=== PATIENT | male | born 1955 | race Caucasian/White ===

== ENCOUNTER 2017-06-20 17:06 | Inpatient (IN) | payer MEDICARE ==
[2017-06-20 17:35] LABS: #Eosinphils 0.3 thou/uL (0.0-0.7); #Lymphocytes 1.2 thou/uL (1.20-3.40); #Monocytes 0.7 thou/uL (0.11-0.59); #Neutrophils 13.7 thou/uL (1.40-6.50); %Basophils 0.3 % (0.0-1.0); %Eosinophils 1.8 % (0.0-10.0); %Lymphocytes 7.8 % (21.0-51.0); %Monocytes 4.2 % (0.0-10.0); Hemoglobin 15.9 g/dL (14.0-18.0); Mean Corpuscular HGB CONC 32.6 g/dL (32.0-36.0); Mean Corpuscular Hemoglobin 31.7 pg (27.0-31.0); Mean Corpuscular Volume 97.5 fl (80.0-94.0); Platelet Count 329 thou/uL (130-400); RBC Distribution Width 11.5 % (11.5-14.5); Red Blood Cell (RBC) Count 5.02 mill/uL (4.70-6.10); White Blood Cell (WBC) Count 15.9 thou/uL (4.8-10.8)
[2017-06-20 17:54] LABS: PTT 27.2 SEC (22.9-36.1); Prothrombin Time 13.5 SEC (12.0-14.7)
[2017-06-20 17:55] LABS: D-Dimer Test 0.43 *mcg/mL (0.27-0.43)
[2017-06-20 17:56] LABS: Acetaminophen Less than 6.0 mcg/mL (10.0-30.0); Alcohol Less than 10 mg/dL (Less than 10); Salicylate Less than 8.0 mg/dL (15.0-30.0)
[2017-06-20 17:59] LABS: ALT (SGPT) 12 U/L (8-55); AST (SGOT) 11 U/L (5-34); Albumin 4.3 g/dL (3.4-4.8); Alkaline Phosphatase 87 U/L (40-150); Anion Gap 15 mmol/L (10-20); BUN (Urea Nitrogen) 19 mg/dL (8.4-25.7); Bilirubin, Total 1.2 mg/dL (0.2-1.2); CK (CPK) 32 U/L (30-200); CKMB 1.1 ng/mL (0-6.6); Calc. Creatinine Clearance 0 mL/min (70-130); Calcium 9.4 mg/dL (7.8-10.44); Carbon Dioxide 29 mmol/L (23-31); Chloride 96 mmol/L (98-107); Estimated GFR-MDRD 66; Globulin 3.6 g/dL (2.4-3.5); Glucose 343 mg/dL (80-115); Lipase 11 U/L (8-78); Potassium 5.1 mmol/L (3.5-5.1); Protein, Total 7.9 g/dL (5.8-8.1); Sodium 135 mmol/L (136-145); Troponin I 0.014 ng/mL (< 0.028)
--- NOTE | 2017-06-20 18:01 | RAD ---
PORTABLE CHEST: 06/20/17 HISTORY: Shortness of breath. Elevated blood pressure. Heart size is enlarged. Internal defibrillator device is present. The lungs are clear of infiltrates. IMPRESSION: Cardiomegaly. POS: [facility]
[2017-06-20 18:05] LABS: Bilirubin Negative (Negative); Blood, Urine Negative (Negative); Clarity CLOUDY (Clear); Glucose, Urine (Dipstick) 500 mg/dL (Negative); Leukocyte Negative (Negative); Nitrite Negative (Negative); Protein, Urine (Dipstick) Negative (Neg-Trace); Specific Gravity, Urine 1.019 (1.002-1.036); pH, Urine 7.5 (5.0-9.0)
--- NOTE | 2017-06-20 18:13 | CT ---
CT OF BRAIN PERFORMED WITHOUT CONTRAST ENHANCEMENT: 06/20/17 HISTORY: Altered mental status. There is some generalized ventricular and sulcal prominence. No signs of intracerebral hemorrhage or extra-axial fluid collections. The mastoid air cells are clear. There is mucosal change in the left maxillary sinus. IMPRESSION: No acute intracranial abnormality. POS: [facility]
[2017-06-20 18:54] LABS: Amphetamine Not Detected (NotDetected); Barbiturates Screen Not Detected (NotDetected); Benzodiazepine Screen Detected (NotDetected); Cocaine Metabolite Screen Not Detected (NotDetected); Medtox Control Line Valid? VALID (VALID); Medtox Reader # READER 4; Methadone Not Detected (NotDetected); Methamphetamine Not Detected (NotDetected); Opiate Screen Detected (NotDetected); Oxycodone Screen Not Detected (NotDetected); Phencyclidine (PCP) Not Detected (NotDetected); THC/Cannabinoid Screen Not Detected (NotDetected); Tricyclic Screen Not Detected (NotDetected)
[2017-06-20] MEDS ORDERED: Acetaminophen 500 MG TAB ONE (20:27)
[2017-06-20] MEDS ORDERED: Ondansetron ODT 4 MG TAB SL PRN (21:15)
[2017-06-20] MEDS ORDERED: Sodium Chloride 0.9% 1,000 ML IV SCH (21:15)
[2017-06-20] MEDS ORDERED: Ondansetron HCl/PF 4 MG/2 ML Vial IVP PRN (21:15)
[2017-06-20] MEDS ORDERED: Dextrose 5% in Water 1,000 ML IV PRN (21:34)
[2017-06-20] MEDS ORDERED: Dextrose 50% Abboject 50 ML SYRINGE SLOW IVP PRN (21:34)
[2017-06-20] MEDS: HumaLOG 300 UNITS/3 ML VIAL SC PRN (21:59)
[2017-06-20 22:06] LABS: Lactic Acid 1.6 mmol/L (0.5-2.2)
[2017-06-20 22:36] VITALS: BMI 33.4
[2017-06-21 07:06] LABS: #Basophils 0.1 thou/uL (0.0-0.2); #Eosinphils 0.2 thou/uL (0.0-0.7); #Lymphocytes 1.9 thou/uL (1.20-3.40); #Monocytes 0.7 thou/uL (0.11-0.59); #Neutrophils 9.7 thou/uL (1.40-6.50); %Basophils 0.5 % (0.0-1.0); %Eosinophils 1.4 % (0.0-10.0); %Lymphocytes 15.5 % (21.0-51.0); %Monocytes 5.2 % (0.0-10.0); %Neutrophils 77.4 % (42.0-75.0); Hemoglobin 12.8 g/dL (14.0-18.0); Mean Corpuscular HGB CONC 33.2 g/dL (32.0-36.0); Mean Corpuscular Hemoglobin 32.7 pg (27.0-31.0); Mean Corpuscular Volume 98.5 fl (80.0-94.0); Mean Platelet Volume 6.7 fL (7.4-10.4); Platelet Count 225 thou/uL (130-400); RBC Distribution Width 11.4 % (11.5-14.5); White Blood Cell (WBC) Count 12.5 thou/uL (4.8-10.8)
[2017-06-21 07:27] LABS: Albumin 3.1 g/dL (3.4-4.8); Anion Gap 10 mmol/L (10-20); BUN (Urea Nitrogen) 16 mg/dL (8.4-25.7); BUN/Creatinine Ratio 20.25; Calc. Creatinine Clearance 153 mL/min (70-130); Calcium 8.3 mg/dL (7.8-10.44); Carbon Dioxide 26 mmol/L (23-31); Chloride 104 mmol/L (98-107); Estimated GFR-MDRD Greater than 90; Glucose 266 mg/dL (80-115); Magnesium 1.7 mg/dL (1.6-2.6); Phosphorus 2.6 mg/dL (2.3-4.7); Potassium 4.1 mmol/L (3.5-5.1); Sodium 136 mmol/L (136-145)
[2017-06-21] MEDS ORDERED: Senokot 8.6 MG TAB PO PRN (07:55)
[2017-06-21] MEDS ORDERED: Acetaminophen 325 MG TAB PO PRN (07:55)
[2017-06-21] MEDS ORDERED: Ondansetron ODT 4 MG TAB PO PRN (07:55)
[2017-06-21] MEDS ORDERED: Ondansetron HCl/PF 4 MG/2 ML Vial IVP PRN (07:55)
[2017-06-21] MEDS ORDERED: Nitroglycerin 0.4 MG TAB (25 Tab Bottle) PO PRN (07:55)
[2017-06-21] MEDS ORDERED: Calcium Carbonate 500 MG ChewTAB PO PRN (07:55)
[2017-06-21] MEDS ORDERED: cloNIDine 0.1 MG TAB PO PRN (07:59)
[2017-06-21] MEDS ORDERED: Vancomycin HCl 1 GM in Premix Bag 1 BAG IVPB SCH (08:00)
--- NOTE | 2017-06-21 08:00 | HP ---
DATE OF ADMISSION: 06/20/2017 The patient was seen on 06/21/2017. CHIEF COMPLAINT: Altered mentation with generalized weakness and fever. HISTORY OF PRESENT ILLNESS: Patient is a 61-year-old male from [place] visiting [place], presented to the emergency room with altered mentation. Patient has extensive past medical history including con gestive heart failure, ejection fraction 35%, status post AICD, hypertension, diabetes mellitus type 2 with recent stroke approximately 3 weeks ago. Over the last two days, the patient has been confused. There was no focal neurologic deficit reporte d. His confusion got worse over the last 24 hours. He also had generalized shaking. He also had so me cough that was productive of thick whitish phlegm. The also noticed some shortness of breath . For this reason, he was sent to the emergency room for evaluation. In the emergency room, his initial vital signs showed temperature 103.2 with respirations 24, pulse r ate of 115 with O2 saturation 94% on room air. CT scan of the brain was negative. Chest x-ray was n egative. Influenza screen was negative. He received Tylenol, vancomycin, IV fluid, Levaquin in the emergency room. PAST MEDICAL HISTORY: 1. Diabetes mellitus type 2. 2. Hypertension. 3. Hyperlipidemia. 4. Coronary artery disease. 5. Recent cerebrovascular accident without residual deficit. 6. Chronic systolic heart failure, ejection fraction 35% range, status post AICD. PAST SURGICAL HISTORY: Patient had several defibrillator placement. This is his fifth defibrillator per patient report. ALLERGIES: No known drug allergies. CURRENT HOME MEDICATIONS: Xanax 2 mg 3 times daily, Lipitor 40 mg b.i.d., clonidine 0.1 b.i.d., enal kristi 5 mg b.i.d., Pepcid 20 mg b.i.d., Lasix as needed, levothyroxine 25 mcg daily, Toprol-XL 100 mg daily, potassium chloride as needed, Topamax as needed, Effexor 37.5 mg daily, Ambien 5 mg at bedtim e. SOCIAL HISTORY: Patient [place] lives [place] in [place]. He is visiting his mother in [place]. No smoking, alcohol or drug use reported. FAMILY HISTORY: Positive for heart disease in several family members. REVIEW OF SYSTEMS: The following complete review of systems was negative, unless otherwise mentioned in the HPI or below: Constitutional: Weight loss or gain, ability to conduct usual activities. Skin: Rash, itching. Eyes: Double vision, pain. ENT/Mouth: Nose bleeding, neck stiffness, pain, tenderness. Cardiovascular: Palpitations, dyspnea on exertion, orthopnea. Respiratory: Shortness of breath, wheezing, cough, hemoptysis, fever or night sweats. Gastrointestinal: Poor appetite, abdominal pain, heartburn, nausea, vomiting, constipation, or diarr hea. Genitourinary: Urgency, frequency, dysuria, nocturia. Musculoskeletal: Pain, swelling. Neurologic/Psychiatric: Anxiety, depression. Allergy/Immunologic: Skin rash, bleeding tendency. PHYSICAL EXAMINATION: VITAL SIGNS: As discussed above in the emergency room. GENERAL: A 61-year-old male still has residual confusion. Overall, able to answer appropriately. HEENT: Head is atraumatic, normocephalic. Sclerae are anicteric. Moist mucous membranes. No oral lesion. NECK: Supple, no JVD, no neck stiffness, no carotid bruit. LUNGS: Essentially clear to auscultation bilaterally with scattered rhonchi at bases. No wheezing. Lungs were symmetrical. Trachea midline. HEART: S1, S2 present. Regular rate and rhythm. No significant rubs or gallops appreciated. AICD noted. ABDOMEN: Soft and nontender, bowel sounds present. EXTREMITIES: A 2+ edema in bilateral lower extremities. SKIN: Warm and dry. LYMPH NODES: No palpable lymph nodes in the neck. PERIPHERAL VASCULAR: Radial pulses palpable bilaterally. MUSCULOSKELETAL: No joint swelling or tenderness. NEUROLOGIC: Limited neurological examination was nonfocal. Cranial nerves II through XII were linda l on examination. Power was 5/5 in all extremities. [id number] test was normal. Sensation to t ouch was normal bilaterally. PSYCHIATRIC: Patient is alert, awake, oriented x3. SKIN: Warm and dry. LABORATORY DATA AND X-RAY FINDINGS: Influenza testing negative. Respiratory viral PCR was negative. Urinalysis was negative. CBC showed WBC 15.9 with 86% neutrophils. D-dimer was negative. Blood s ugar was 343. Lactic acid on admission 2.5. Troponins negative. EKG by my review showed paced rhyt hm. Chest x-ray by my review was negative for infiltrate. CT scan of the brain was negative. IMPRESSION: 1. Sepsis with acute organ dysfunction, suspected secondary to pneumonia. Chest x-ray was negative. 2. Toxic metabolic encephalopathy, resolving. 3. Diabetes mellitus type 2. 4. Hypertension. 5. Hyperlipidemia. 6. Chronic systolic heart failure, ejection fraction 20%-25% range. 7. Lactic acidosis. 8. Obesity with a BMI 33.5. PLAN: The patient will be monitored in the telemetry unit. The source for sepsis appears to be pneu monia. Influenza testing is negative. Respiratory viral panel is negative. We will consult Infecti ous Disease, Dr. Liu. He received dose of vancomycin and Levaquin in the emergency room. We will continue vancomycin with cefepime for now. Other possibilities include AICD infection. Blood cultur es have been sent. Insulin sliding scale will be continued. His temperature has improved to 98.6 at this time. CODE STATUS: FULL CODE. Plan of care was discussed with the patient in detail. The patient and the family stated harshai ng.
[2017-06-21] MEDS ORDERED: Cefepime 2 GM in Sodium Chloride 0.9% 100 ML IVPB SCH (09:00)
[2017-06-21] MEDS ORDERED: Insulin Detemir 100 UNITS/ML 15 UNITS in Pre-Filled Syringe 1 EACH SC SCH ×2 (09:00→21:00)
--- NOTE | 2017-06-21 09:05 | RAD ---
PA AND LATERAL CHEST: Indication: Fever, cough, pneumonia. Comparison: Single view of the chest dated 06-20-17. FINDINGS: No focal consolidation is evident. Cardiomegaly persists. Right sided AICD is unchanged. No acute oss eous abnormality is evident. IMPRESSION: Stable cardiomegaly. POS: [facility]
[2017-06-21] MEDS: Aspirin 81 mg Enteric Coated Tablet PO SCH (09:30)
[2017-06-21] MEDS: Docusate 100 MG CAP PO SCH ×2 (09:31→20:48)
[2017-06-21] MEDS: Saccharomyces boulardii 250 MG CAP PO SCH (09:31)
[2017-06-21] MEDS: Famotidine 20 MG TAB PO SCH ×2 (09:31→20:48)
[2017-06-21] MEDS: Vancomycin HCl 1.5 GM, Admixture Fee 1 EACH in Sodium Chloride 0.9% 250 ML 300 ML IVPB SCH ×2 (09:32→16:52)
[2017-06-21] MEDS: Cefepime 2 GM, Syringe 2.5 ML in Sterile Water 10 ML SLOW IVP SCH ×2 (09:32→20:48)
[2017-06-21] MEDS ORDERED: Zolpidem Tartrate 5 MG TAB PO PRN (10:39)
[2017-06-21] MEDS: HumaLOG 300 UNITS/3 ML VIAL SC PRN ×3 (13:34→20:49)
--- NOTE | 2017-06-21 14:55 | CON ---
DATE OF CONSULTATION: 06/21/2017 REASON FOR CONSULTATION: Fever. HISTORY OF PRESENT ILLNESS: A 61-year-old patient who lives in [place], visiting his mom with his w roxanna, has a history of type 2 diabetes, coronary artery disease with ischemic cardiomyopathy, and has had I believe 3 or 4 defibrillators placed and has had infections with defibrillators in the past. T his one was placed about 5 years ago. About 2 weeks ago, was told he had had a stroke although no im aging studies were done. This diagnosis was based on clinical findings of ataxia. After coming to [place] from [place] to visit his mother, he developed some cough and temperature elevation up to 103. A little bit of tachypnea. No headaches. No visual symptoms, sore throat, odynophagia, or dysphagia . No chest pain. No abdominal pain or diarrhea. No genitourinary symptoms. No joint symptoms. PAST MEDICAL HISTORY: Type 2 diabetes, hypertension, hyperlipidemia, coronary artery disease. Ische stacia cardiomyopathy with AICD, has had infection of AICDs in the past, last AICD placed 5 years ago. History of stroke although no imaging study was done to confirm the diagnosis. This was diagnosis ba sed on clinical findings. PAST SURGICAL HISTORY: As above. ALLERGIES: None. HOME MEDICATIONS: Xanax, Lipitor, clonidine, enalapril, Pepcid, Lasix, levofloxacin, Toprol, Topamax , Ambien. SOCIAL HISTORY: Lives on a farm in [place] visiting mother. Never smoker. . FAMILY HISTORY: Coronary artery disease. PHYSICAL EXAMINATION: VITAL SIGNS: T-max 102, is currently 99.6. Blood pressure 130/63, pulse of 86, respirations 18, O2 sat 90-99%. GENERAL: Appears no distress. No skin lesions noted. MUSCULOSKELETAL: Peripheral IV access. No Ordonez catheter. No lymphadenopathy. HEENT: Ocular movements are conjugate. Oral cavity is normal. NECK: Supple. LUNGS: With symmetric air entry. Fairly prominent inspiratory crackles, particularly at left base. HEART: S1 and S2, regular rate. No murmurs. ABDOMEN: Soft. Not distended or tender. No ascites. No bladder distention. EXTREMITIES: No joint inflammatory activity. Moves all extremities equally. Plantar responses are flexure. NEUROLOGIC: Cognitive function appears to be intact. LABORATORY DATA: White cell count 15,900, down to now 12,000; hemoglobin down to 12.8; MCV 98; plate lets 225; 77% neutrophils. Sodium 136, creatinine 0.79. Liver profile normal. BNP 72, albumin 4.3. Urinalysis was not remarkable. Toxicology with opiates and benzodiazepine agents. Imaging studies include a chest x-ray on 06/20/2017 with cardiomegaly and followup chest x-ray from today with no fo win consolidation. Two sets of blood cultures pending at this time, respiratory pathogen PCR panel n egative. ASSESSMENT: 1. Ischemic cardiomyopathy with automatic implantable cardioverter defibrillator in place. 2. New onset of fever and chills and cough. 3. Abnormal lung exam. DISCUSSION: Differential diagnosis includes a lower respiratory tract infection, either bacterial or viral versus bacteremia with increased capillary permeability in the lungs with the findings describ ed above. The main task at hand is to make sure the blood cultures nurse outreach case manager to be negative. If that is the case, then he could be discharged on oral antimicrobial therapy with either a third generatio n oral cephalosporin or quinolone. If the blood cultures turn positive, then evidently we would have to worry about colonization of the AICD lead depending on the type of organism isolated.
[2017-06-21] MEDS: ALPRAZolam 0.25 MG TAB PO PRN (20:48)
[2017-06-21] MEDS ORDERED: Enoxaparin Sodium 40 MG/0.4 ML SYRINGE SC SCH (21:00)
[2017-06-22] MEDS: Vancomycin HCl 1.5 GM, Admixture Fee 1 EACH in Sodium Chloride 0.9% 250 ML 300 ML IVPB SCH ×3 (00:40→16:03)
[2017-06-22 05:17] LABS: #Eosinphils 0.3 thou/uL (0.0-0.7); #Monocytes 0.7 thou/uL (0.11-0.59); #Neutrophils 7.6 thou/uL (1.40-6.50); %Basophils 0.3 % (0.0-1.0); %Lymphocytes 18.5 % (21.0-51.0); %Monocytes 6.2 % (0.0-10.0); Hemoglobin 12.8 g/dL (14.0-18.0); Mean Corpuscular HGB CONC 32.7 g/dL (32.0-36.0); Mean Corpuscular Hemoglobin 32.2 pg (27.0-31.0); Mean Corpuscular Volume 98.3 fl (80.0-94.0); Mean Platelet Volume 7.1 fL (7.4-10.4); Platelet Count 246 thou/uL (130-400); RBC Distribution Width 11.4 % (11.5-14.5); Red Blood Cell (RBC) Count 3.98 mill/uL (4.70-6.10); White Blood Cell (WBC) Count 10.6 thou/uL (4.8-10.8)
[2017-06-22 05:40] LABS: Albumin 3.2 g/dL (3.4-4.8); Anion Gap 9 mmol/L (10-20); BUN (Urea Nitrogen) 9 mg/dL (8.4-25.7); BUN/Creatinine Ratio 12.33; Calc. Creatinine Clearance 164 mL/min (70-130); Calcium 8.2 mg/dL (7.8-10.44); Carbon Dioxide 27 mmol/L (23-31); Chloride 104 mmol/L (98-107); Estimated GFR-MDRD Greater than 90; Glucose 210 mg/dL (80-115); Magnesium 1.9 mg/dL (1.6-2.6); Phosphorus 2.2 mg/dL (2.3-4.7); Potassium 3.8 mmol/L (3.5-5.1); Sodium 136 mmol/L (136-145)
[2017-06-22] MEDS ORDERED: Levothyroxine Sodium 25 MCG TAB PO SCH (06:00)
[2017-06-22 08:51] LABS: Vancomycin, Trough 18.3 ug/mL
[2017-06-22] MEDS ORDERED: Insulin Detemir 100 UNITS/ML 25 UNITS in Pre-Filled Syringe 1 EACH SC SCH (09:00)
[2017-06-22] MEDS ORDERED: Venlafaxine XR 37.5 MG CAP PO SCH (09:00)
[2017-06-22] MEDS: Famotidine 20 MG TAB PO SCH (09:42)
[2017-06-22] MEDS: Saccharomyces boulardii 250 MG CAP PO SCH (09:43)
[2017-06-22] MEDS: Docusate 100 MG CAP PO SCH (09:43)
[2017-06-22] MEDS: Aspirin 81 mg Enteric Coated Tablet PO SCH (09:43)
[2017-06-22] MEDS: Cefepime 2 GM, Syringe 2.5 ML in Sterile Water 10 ML SLOW IVP SCH (09:44)
[2017-06-22] MEDS: ALPRAZolam 0.25 MG TAB PO PRN (09:48)
[2017-06-22] MEDS: K-Phos Neutral 250 MG TAB PO SCH ×2 (12:15→16:25)
[2017-06-22] MEDS: HumaLOG 300 UNITS/3 ML VIAL SC PRN (12:15)
[2017-06-22 17:34] VITALS: BP 142/78; TEMP 98.8
--- NOTE | 2017-06-23 10:23 | DIS ---
DATE OF DISCHARGE: 06/22/2017 DISCHARGE DISPOSITION: Home. FOLLOWUP: 1. With Infectious Disease, Dr. Liu, in 1 week. 2. Follow up with his primary care physician in [place] Dr. Lon Mir in 1 week. The patient was advised to return to emergency room if he develops any new fever. ALLERGIES: No known drug allergies. The patient was seen and examined on the day of discharge. Denies any new complaints. No chest pain , shortness of breath, palpitations, or fever reported. His blood cultures have been negative so far . DISCHARGE MEDICATIONS: Omnicef 300 mg b.i.d. #14, K-Phos 250 mg 3 times daily #10. Other home medic ations were resumed. INPATIENT CONSULTANTS: Infectious Disease, Dr. Liu. SIGNIFICANT LABORATORY DATA: WBC on admission 15.9 and at discharge 10.6. D-dimer was negative. Ph osphorus 2.2. Lactic acid on admission 2.5. Repeat basic metabolic panel with phosphorus is recomme nded after a week, primary care physician is advised to follow. Blood cultures were negative. Influ ivett screen and respiratory viral panel were negative. BRIEF HOSPITAL COURSE: Patient is a 61-year-old male from [place], presented to the hospital with a ltered mentation with generalized weakness and fever. Please refer to the history and physical dated 06/21/2017 for further details. The patient was admitted to the hospital with a diagnosis of sepsis with acute organ dysfunction, aayush pected secondary to pneumonia. His chest x-ray, however, was negative. Influenza screen as well as respiratory viral panel were negative. He was started on broad-spectrum antibiotics. His blood cult ure remained negative. Patient was seen by Infectious Disease, Dr. Liu. Dr. Liu recommended dis charging him on oral cephalosporins for now. He probably had pneumonia. The other rare possibility could be AICD infection, which he has had in the past. The patient was advised to return to emergenc y room if he develops any new fever. His metabolic encephalopathy has completely resolved. FINAL DIAGNOSES: 1. Sepsis with acute organ dysfunction, probably secondary to pneumonia. 2. Toxic metabolic encephalopathy, resolved. 3. Diabetes mellitus, type 2. 4. Hypertension. 5. Hyperlipidemia. 6. Chronic systolic heart failure, ejection fraction 20%-25% range. 7. Lactic acidosis. 8. Obesity with a BMI 33.5. 9. History of automatic implantable cardioverter defibrillator infections in the past. 10. Mild hyponatremia. 11. Lactic acidosis on admission, resolved. Plan of care was discussed with the patient and the family in detail. They stated understanding.
--- NOTE | 2017-06-23 12:09 | EKG ---
Test Reason : Blood Pressure : / mmHG Vent. Rate : 110 BPM Atrial Rate : 110 BPM P-R Int : 164 ms QRS Dur : 142 ms QT Int : 360 ms P-R-T Axes : 003 037 036 degrees QTc Int : 487 ms Poor data quality, interpretation may be adversely affected Atrial-sensed ventricular-paced rhythm Abnormal ECG Confirmed by DONNA TAN, JOANNE ([id number]), supervising film or videotape editor NAHED GUZMÁN ([id number]) on 06/23/2017 12:09:20 PM Referred By: Confirmed By:JOANNE THOMPSON MD
== END 2017-06-22 16:31 | disposition home or self-care (01) | DRG 871 ==
LOC: ERS 17:06 → 2NO 18:15
PROVIDERS: ADMIT Internal Medicine; ATTEND Internal Medicine
DX: A41.9 Sepsis, unspecified organism (principal); G92 Toxic encephalopathy; I11.0 Hypertensive heart disease with heart failure; E87.2 Acidosis; I50.22 Chronic systolic (congestive) heart failure; J18.9 Pneumonia, unspecified organism; E87.1 Hypo-osmolality and hyponatremia; R65.20 Severe sepsis without septic shock; Z86.73 Personal history of transient ischemic attack (TIA), and cerebral infarction without residual deficits; E78.5 Hyperlipidemia, unspecified; I25.10 Atherosclerotic heart disease of native coronary artery without angina pectoris; E11.9 Type 2 diabetes mellitus without complications; Z95.810 Presence of automatic (implantable) cardiac defibrillator; E66.9 Obesity, unspecified; Z68.33 Body mass index [BMI] 33.0-33.9, adult; I25.5 Ischemic cardiomyopathy
CPT/HCPCS: 36415; 36416; 70450; 71045; 71046; 80053; 80069; 80202; 80306; 80307; 81003; 82550; 82553; 83605; 83690; 83735; 83880; 84484; 85025; 85379; 85610; 85730; 86140; 87040; 87633; 87798; 93005; 94760; 96361; 96365; 96375; A4216; G8978-GP-CJ; G8979-GP-CJ; G8980-GP-CJ; J0692; J1650; J1815; J1956; J3370; J7050